=== PATIENT | male | born 1950 | race Asian ===

== ENCOUNTER 2023-09-20 08:21 | Observation (INO) | payer OTHER ==
[2023-09-20] MEDS ORDERED: MAG HYDROX/AL HYDROX/SIMETH 30 ML UNIT-DOSE CUP PO ONE (08:43)
[2023-09-20] MEDS ORDERED: ACETAMINOPHEN 1000 MG/100 ML BAG IVPB ONE (08:43)
[2023-09-20] MEDS ORDERED: FAMOTIDINE 20 MG/50 ML IVPB 20 MG/50 ML MG IVPB ONE ×2 (08:43→09:06)
[2023-09-20] MEDS ORDERED: ONDANSETRON 4 MG/2 ML VIAL IVPUSH ONE (08:43)
[2023-09-20] MEDS ORDERED: LACTATED RINGERS SOLUTION 1000 ML INFUS.BAG IV ONE (08:43)
[2023-09-20 08:47] VITALS: BMI 29.0
[2023-09-20] MEDS ORDERED: ACETAMINOPHEN INJECTION 100 ML IVPB ONE (09:06)
[2023-09-20] MEDS ORDERED: ONDANSETRON 4 MG/2 ML VIAL ONE (09:06)
[2023-09-20] MEDS ORDERED: MAG HYDROX/AL HYDROX/SIMETH 30 ML UNIT-DOSE CUP ONE (09:06)
[2023-09-20 09:40] LABS: HEMATOCRIT 40.8 % (35.4-49); HEMOGLOBIN 13.9 GM/dL (11.7-16.9); MCH 30.2 pg (25.7-33.7); MCHC 34.1 g/dl (32.0-35.9); MEAN CELL VOLUME 88.7 fl (80-96); MEAN PLT VOLUME 9.2 fl (7.5-11.1); PLATELET COUNT 253 10^3/uL (134-434); RDW 14.3 % (11.9-15.9); WHITE BLOOD COUNT 11.8 K/mm3 (4.0-10.0)
[2023-09-20 09:42] LABS: POTASSIUM 3.8 mmol/L (3.5-5.1)
[2023-09-20 09:46] LABS: CALCIUM 9.3 mg/dL (8.5-10.1)
[2023-09-20 09:47] LABS: ALBUMIN 3.9 g/dl (3.4-5.0); BLOOD UREA NITROGEN 19.7 mg/dL (7-18); MAGNESIUM 2.1 mg/dL (1.8-2.4)
[2023-09-20 09:48] LABS: INR 1.06 (0.83-1.09); PROTHROMBIN TIME (PATIENT) 12.3 SEC (9.7-13.0)
[2023-09-20 09:50] LABS: CREATININE 1.2 mg/dL (0.55-1.3)
[2023-09-20 09:51] LABS: ACTIVATED PTT 26.6 SECONDS (25.2-36.5); BILIRUBIN,TOTAL 0.6 mg/dL (0.2-1); TOT PROT 7.4 g/dl (6.4-8.2)
[2023-09-20 10:19] LABS: ANISOCYTOSIS 0; MACROCYTOSIS 0
[2023-09-20] MEDS ORDERED: BISACODYL 10 MG SUPP.RECT PR PRN (15:14)
[2023-09-20] MEDS ORDERED: PANTOPRAZOLE 40 MG TABLET PO ONE (15:36)
[2023-09-20] MEDS ORDERED: amLODIPine BESYLATE 5 MG TABLET (FP) ONE (15:37)
[2023-09-20] MEDS: SODIUM CHLORIDE 1,000 ML IV SCH (15:46)
[2023-09-20] MEDS: amLODIPine BESYLATE 5 MG TABLET (FP) PO SCH (15:46)
[2023-09-20] MEDS: PANTOPRAZOLE 40 MG TABLET PO SCH (15:46)
[2023-09-20] MEDS ORDERED: ALBUTEROL SO4 0.083% IH SOL 2.5 MG/3 ML VIAL.NEB. NEB ONE (16:13)
[2023-09-20] MEDS: ALBUTEROL SO4 0.083% IH SOL 2.5 MG/3 ML VIAL.NEB. NEB SCH ×2 (16:39→20:12)
[2023-09-20] MEDS: INSULIN SLIDING SCALE (NOVOLOG) 1 VIAL SQ SCH ×2 (16:39→22:21)
[2023-09-20] MEDS ORDERED: ACETAMINOPHEN 1000 MG/100 ML BAG IVPB PRN (18:00)
[2023-09-20] MEDS: CLINDAMYCIN 600MG PREMIX IVPB 600 MG/50 ML BAG IVPB SCH (18:47)
[2023-09-20] MEDS ORDERED: MELATONIN 1 MG TABLET PO SCH (22:00)
[2023-09-20] MEDS: HEPARIN NA (PORCINE) 5,000 UNITS/ML 1ML VIAL SQ SCH (22:21)
[2023-09-21] MEDS: CLINDAMYCIN 600MG PREMIX IVPB 600 MG/50 ML BAG IVPB SCH ×2 (01:13→09:29)
[2023-09-21 02:57] VITALS: PULSE 95
[2023-09-21] MEDS: ALBUTEROL SO4 0.083% IH SOL 2.5 MG/3 ML VIAL.NEB. NEB SCH ×4 (03:06→11:50)
[2023-09-21] MEDS: SODIUM CHLORIDE 1,000 ML IV SCH (03:20)
[2023-09-21] MEDS: HEPARIN NA (PORCINE) 5,000 UNITS/ML 1ML VIAL SQ SCH (06:22)
[2023-09-21] MEDS: INSULIN SLIDING SCALE (NOVOLOG) 1 VIAL SQ SCH ×2 (06:23→11:10)
[2023-09-21 09:02] LABS: EPI CELLS 1 /uL (0-25.1); HYALINE CASTS 0 /uL (0-3.1); URINE APPEARANCE CLEAR; URINE BACTERIA 6 /uL (0-1359); URINE BILIRUBIN NEGATIVE (NEGATIVE); URINE COLOR YELLOW; URINE GLUCOSE (UA) NEGATIVE (NEGATIVE); URINE KETONE NEGATIVE (NEGATIVE); URINE LEUK ESTERASE NEGATIVE (NEGATIVE); URINE NITRITE NEGATIVE (NEGATIVE); URINE PROTEIN NEGATIVE (NEGATIVE); URINE RBC 84 /uL (0-23.9); URINE WBC 6 /uL (0-25.8)
[2023-09-21 09:10] LABS: HEMATOCRIT 34.3 % (35.4-49); HEMOGLOBIN 11.3 GM/dL (11.7-16.9); MCH 29.8 pg (25.7-33.7); MEAN CELL VOLUME 90.4 fl (80-96); MEAN PLT VOLUME 9.2 fl (7.5-11.1); PLATELET COUNT 225 10^3/uL (134-434); WHITE BLOOD COUNT 5.2 K/mm3 (4.0-10.0)
[2023-09-21 09:20] LABS: POTASSIUM 3.8 mmol/L (3.5-5.1)
[2023-09-21] MEDS: amLODIPine BESYLATE 5 MG TABLET (FP) PO SCH (09:29)
[2023-09-21] MEDS: PANTOPRAZOLE 40 MG TABLET PO SCH (09:29)
[2023-09-21 09:35] VITALS: BP 126/67
[2023-09-21 09:55] LABS: BLOOD UREA NITROGEN 13.9 mg/dL (7-18); CALCIUM 8.6 mg/dL (8.5-10.1)
[2023-09-21 09:57] LABS: MAGNESIUM 2.1 mg/dL (1.8-2.4)
[2023-09-21 09:59] LABS: CREATININE 1.1 mg/dL (0.55-1.3); PHOSPHOROUS 3.2 mg/dL (2.5-4.9)
[2023-09-21 12:03] VITALS: RESP 18; TEMP 97.3
[2023-09-21] MEDS ORDERED: AMOX TR/POT CLAV 875MG/125MG TABLETS (FP) PO SCH (17:30)
== END 2023-09-21 12:40 | disposition home or self-care (01) ==
LOC: JER 08:21 → JERBED 09:54 → J8W 17:44
PROVIDERS: ADMIT Internal Medicine; ATTEND Nurse Practitioner Acute Care
PROC: 3E033NZ Introduction of Analgesics, Hypnotics, Sedatives into Peripheral Vein, Percutaneous Approach (ICD-10-PCS; principal; 2023-09-20)
PROC: 3E0F7GC Introduction of Other Therapeutic Substance into Respiratory Tract, Via Natural or Artificial Opening (ICD-10-PCS; 2023-09-20)
PROC: 3E03329 Introduction of Other Anti-infective into Peripheral Vein, Percutaneous Approach (ICD-10-PCS; 2023-09-20)
PROC: 3E013VG Introduction of Insulin into Subcutaneous Tissue, Percutaneous Approach (ICD-10-PCS; 2023-09-20)
PROC: 3E0337Z Introduction of Electrolytic and Water Balance Substance into Peripheral Vein, Percutaneous Approach (ICD-10-PCS; 2023-09-20)
DX: R11.2 Nausea with vomiting, unspecified (principal); F79 Unspecified intellectual disabilities; I25.10 Atherosclerotic heart disease of native coronary artery without angina pectoris; I11.0 Hypertensive heart disease with heart failure; R73.03 Prediabetes; Z95.5 Presence of coronary angioplasty implant and graft; M41.9 Scoliosis, unspecified
CPT/HCPCS: 0241U-QW; 36415; 71045-TC-FY; 74177-TC; 80048; 80053; 81003; 82962; 83036; 83690; 83735; 84100; 84484; 85025; 85027; 85610; 85730; 86140; 86850; 86900; 86901; 87040; 93005; 93010; 94640; 96361; 96365; 96367; 96372; 96374; 99285-25; G0378; J1644; Q9967

== ENCOUNTER 2024-03-06 13:27 | Inpatient (IN) | payer OTHER ==
[2024-03-06] MEDS ORDERED: hydrALAZINE HCL 20 MG/ML VIAL ONE (14:18)
[2024-03-06] MEDS ORDERED: amLODIPine BESYLATE 10 MG TABLET (FP) ONE (14:18)
[2024-03-06 14:25] LABS: HEMOGLOBIN 13.1 GM/dL (11.7-16.9); MCH 30.6 pg (25.7-33.7); MCHC 34.4 g/dl (32.0-35.9); MEAN PLT VOLUME 9.5 fl (7.5-11.1); PLATELET COUNT 199 10^3/uL (134-434); RBC 4.27 M/mm3 (4.00-5.60); RDW 14.1 % (11.9-15.9); WHITE BLOOD COUNT 5.1 K/mm3 (4.0-10.0)
[2024-03-06] MEDS: hydrALAZINE HCL 20 MG/ML VIAL IVPUSH ONE (14:27)
[2024-03-06] MEDS: amLODIPine BESYLATE 10 MG TABLET (FP) PO ONE (14:27)
[2024-03-06] MEDS ORDERED: ALBUTEROL SO4 2.5/IPRATROPIUM 0.5 INH SOL 3 ML VIAL.NEB. NEB ONE ×3 (14:38→18:45)
[2024-03-06] MEDS: ALBUTEROL SO4 2.5/IPRATROPIUM 0.5 INH SOL 3 ML VIAL.NEB. NEB SCH ×2 (14:43→19:15)
[2024-03-06] MEDS ORDERED: ACETAMINOPHEN INJECTION 100 ML IVPB ONE (14:44)
[2024-03-06 14:49] LABS: POTASSIUM 5.1 mmol/L (3.5-5.1)
[2024-03-06 14:51] LABS: CALCIUM 9.3 mg/dL (8.5-10.1)
[2024-03-06] MEDS: ACETAMINOPHEN 1000 MG/100 ML BAG IVPB ONE (14:51)
[2024-03-06 14:52] LABS: ALBUMIN 3.4 g/dl (3.4-5.0); BLOOD UREA NITROGEN 11.6 mg/dL (7-18)
[2024-03-06 14:55] LABS: CREATININE 1.2 mg/dL (0.55-1.3)
[2024-03-06 14:56] LABS: BILIRUBIN,TOTAL 0.5 mg/dL (0.2-1); TOT PROT 7.6 g/dl (6.4-8.2)
[2024-03-06 16:58] LABS: N-TERMINAL BNP 91.4 pg/ml (5-125)
[2024-03-06] MEDS ORDERED: methylPREDNISolone NA SUCC 125 MG/2 ML VIAL ONE (18:19)
[2024-03-06] MEDS: methylPREDNISolone NA SUCC 125 MG/2 ML VIAL IVPUSH ONE (18:27)
[2024-03-06] MEDS ORDERED: ASPIRIN 81 MG CHEWABLE TABLETS ONE (18:46)
[2024-03-06] MEDS ORDERED: LABETALOL HCL 200 MG TABLET (FP) ONE (19:26)
[2024-03-06] MEDS: ASPIRIN 81 MG CHEWABLE TABLETS PO ONE (19:38)
[2024-03-06] MEDS: LABETALOL HCL 200 MG TABLET (FP) PO SCH (19:39)
[2024-03-06 20:13] LABS: EPI CELLS 1 /uL (0-25.1); HYALINE CASTS 0 /uL (0-3.1); PH,URINE 6.5 (5.0-8.0); URINE APPEARANCE CLEAR; URINE BACTERIA 0 /uL (0-1359); URINE BILIRUBIN NEGATIVE (NEGATIVE); URINE COLOR YELLOW; URINE GLUCOSE (UA) NEGATIVE (NEGATIVE); URINE KETONE NEGATIVE (NEGATIVE); URINE LEUK ESTERASE NEGATIVE (NEGATIVE); URINE NITRITE NEGATIVE (NEGATIVE); URINE PROTEIN NEGATIVE (NEGATIVE); URINE RBC 180 /uL (0-23.9); URINE WBC 3 /uL (0-25.8)
[2024-03-06] MEDS: LOSARTAN 50MG/HCTZ 12.5MG 1 TAB PO SCH (22:18)
[2024-03-06] MEDS: HEPARIN NA (PORCINE) 5,000 UNITS/ML 1ML VIAL SQ SCH (22:18)
[2024-03-07 03:37] VITALS: BMI 26.2
[2024-03-07 07:09] LABS: BASO % 0.4 % (0-2.0); HEMATOCRIT 39.9 % (35.4-49); HEMOGLOBIN 13.5 GM/dL (11.7-16.9); LYMPH % 13.2 % (8-40); MCH 30.4 pg (25.7-33.7); MCHC 33.8 g/dl (32.0-35.9); MEAN PLT VOLUME 9.8 fl (7.5-11.1); NEUT % 83.4 % (42.8-82.8); PLATELET COUNT 216 10^3/uL (134-434); RBC 4.43 M/mm3 (4.00-5.60); RDW 13.9 % (11.9-15.9); WHITE BLOOD COUNT 2.5 K/mm3 (4.0-10.0)
[2024-03-07 07:28] LABS: POTASSIUM 3.5 mmol/L (3.5-5.1)
[2024-03-07 07:35] LABS: ALBUMIN 3.5 g/dl (3.4-5.0); BLOOD UREA NITROGEN 15.5 mg/dL (7-18); CALCIUM 9.9 mg/dL (8.5-10.1)
[2024-03-07 07:36] LABS: MAGNESIUM 2.1 mg/dL (1.8-2.4)
[2024-03-07 07:39] LABS: CREATININE 1.2 mg/dL (0.55-1.3)
[2024-03-07 07:40] LABS: BILIRUBIN,TOTAL 0.3 mg/dL (0.2-1); TOT PROT 7.5 g/dl (6.4-8.2)
[2024-03-07] MEDS: LOSARTAN POTASSIUM 50 MG TABLET PO SCH (10:03)
[2024-03-07] MEDS: ENOXAPARIN NA (PORCINE) 40 MG/0.4 ML DISP.SYRIN SQ SCH (10:03)
[2024-03-07] MEDS: methylPREDNISolone NA SUCC 40 MG/1 ML VIAL IVPUSH SCH (13:17)
[2024-03-07] MEDS: BUDESONIDE/FORMETEROL FUMARATE 80/4.5 mcg INHALER IH SCH (13:17)
[2024-03-07] MEDS: BENZONATATE 200 MG CAPSULE PO ONE (15:32)
[2024-03-07] MEDS: CEFTRIAXONE 1 GM in DEXTROSE 5%-WATER - 50 ML IVPB SCH (18:39)
[2024-03-07] MEDS: AZITHROMYCIN IVPB 250 MG in DEXTROSE 5%-WATER - 250 ML IVPB SCH (19:44)
[2024-03-07] MEDS: INSULIN ASPART SLIDING SCALE (NOVOLOG) 1 VIAL SQ SCH (21:57)
[2024-03-08 07:56] LABS: HEMATOCRIT 37.3 % (35.4-49); HEMOGLOBIN 12.3 GM/dL (11.7-16.9); MCH 29.9 pg (25.7-33.7); MEAN CELL VOLUME 90.7 fl (80-96); MEAN PLT VOLUME 9.6 fl (7.5-11.1); MONO % 5.3 % (3.8-10.2); NEUT % 89.7 % (42.8-82.8); PLATELET COUNT 215 10^3/uL (134-434); RBC 4.12 M/mm3 (4.00-5.60); RDW 14.5 % (11.9-15.9); WHITE BLOOD COUNT 9.9 K/mm3 (4.0-10.0)
[2024-03-08 08:07] LABS: POTASSIUM 3.7 mmol/L (3.5-5.1)
[2024-03-08 08:12] LABS: ALBUMIN 3.2 g/dl (3.4-5.0); BLOOD UREA NITROGEN 21.9 mg/dL (7-18); CALCIUM 9.7 mg/dL (8.5-10.1)
[2024-03-08 08:15] LABS: CREATININE 1.1 mg/dL (0.55-1.3)
[2024-03-08 08:17] LABS: BILIRUBIN,TOTAL 0.3 mg/dL (0.2-1); TOT PROT 6.8 g/dl (6.4-8.2)
[2024-03-08] MEDS: amLODIPine BESYLATE 10 MG TABLET (FP) PO SCH (10:18)
[2024-03-08] MEDS: FUROSEMIDE 40 MG/4 ML INJECTABLE VIAL IVPUSH SCH (10:18)
[2024-03-08] MEDS: guaiFENesin/CODEINE 5 ML UNIT-DOSE CUPS PO SCH (12:44)
[2024-03-08] MEDS: LEVALBUTEROL HCL 0.63 MG/3 ML VIAL.NEB. IH SCH (14:37)
[2024-03-08] MEDS: guaiFENesin/CODEINE 5 ML UNIT-DOSE CUPS PO ONE (19:29)
[2024-03-08] MEDS: guaiFENesin/CODEINE 10 ML UNIT-DOSE CUPS PO SCH (20:18)
[2024-03-09] MEDS: guaiFENesin/CODEINE 5 ML UNIT-DOSE CUPS PO SCH (14:19)
[2024-03-10 08:15] LABS: HEMATOCRIT 35.4 % (35.4-49); HEMOGLOBIN 11.8 GM/dL (11.7-16.9); MCH 30.2 pg (25.7-33.7); MCHC 33.4 g/dl (32.0-35.9); MEAN CELL VOLUME 90.4 fl (80-96); MEAN PLT VOLUME 9.6 fl (7.5-11.1); PLATELET COUNT 214 10^3/uL (134-434); RBC 3.91 M/mm3 (4.00-5.60); RDW 14.2 % (11.9-15.9)
[2024-03-10 08:27] LABS: POTASSIUM 3.4 mmol/L (3.5-5.1)
[2024-03-10 08:32] LABS: HEMATOCRIT 35.6 % (35.4-49); HEMOGLOBIN 11.9 GM/dL (11.7-16.9); MCH 30.2 pg (25.7-33.7); MCHC 33.4 g/dl (32.0-35.9); MEAN CELL VOLUME 90.4 fl (80-96); MEAN PLT VOLUME 9.7 fl (7.5-11.1); PLATELET COUNT 212 10^3/uL (134-434); RBC 3.94 M/mm3 (4.00-5.60); RDW 14.4 % (11.9-15.9); WHITE BLOOD COUNT 7.9 K/mm3 (4.0-10.0)
[2024-03-10 08:36] LABS: BLOOD UREA NITROGEN 34.2 mg/dL (7-18); CALCIUM 9.3 mg/dL (8.5-10.1); MAGNESIUM 2.1 mg/dL (1.8-2.4); PHOSPHOROUS 3.7 mg/dL (2.5-4.9)
[2024-03-10 08:37] LABS: BILIRUBIN,TOTAL 0.3 mg/dL (0.2-1); TOT PROT 6.2 g/dl (6.4-8.2)
[2024-03-10 08:38] LABS: ALBUMIN 3.1 g/dl (3.4-5.0)
[2024-03-10 08:48] LABS: CREATININE 1.1 mg/dL (0.55-1.3)
[2024-03-10] MEDS: metoPROLOL SUCCINATE 25 MG TAB.SR.24H (FP) PO ONE (13:55)
[2024-03-10] MEDS: POTASSIUM CHLORIDE TABS 20 MEQ TABLET.ER (FP) PO ONE (13:55)
[2024-03-11 07:19] LABS: HEMATOCRIT 36.8 % (35.4-49); HEMOGLOBIN 12.6 GM/dL (11.7-16.9); MCH 30.6 pg (25.7-33.7); MCHC 34.3 g/dl (32.0-35.9); MEAN CELL VOLUME 89.4 fl (80-96); MEAN PLT VOLUME 9.4 fl (7.5-11.1); PLATELET COUNT 230 10^3/uL (134-434); RBC 4.12 M/mm3 (4.00-5.60); RDW 14.2 % (11.9-15.9); WHITE BLOOD COUNT 6.6 K/mm3 (4.0-10.0)
[2024-03-11 07:43] LABS: POTASSIUM 3.8 mmol/L (3.5-5.1)
[2024-03-11 07:50] LABS: ALBUMIN 3.2 g/dl (3.4-5.0); BLOOD UREA NITROGEN 34.6 mg/dL (7-18)
[2024-03-11 07:51] LABS: BILIRUBIN,TOTAL 0.3 mg/dL (0.2-1); TOT PROT 6.5 g/dl (6.4-8.2)
[2024-03-11 07:52] LABS: CALCIUM 9.6 mg/dL (8.5-10.1)
[2024-03-11 07:53] LABS: MAGNESIUM 2.3 mg/dL (1.8-2.4)
[2024-03-11] MEDS: LOSARTAN POTASSIUM 50 MG TABLET PO SCH (09:39)
[2024-03-11] MEDS: ASPIRIN COATED 81 MG TABLET.EC PO SCH (14:45)
[2024-03-12] MEDS ORDERED: LOSARTAN POTASSIUM 50 MG TABLET PO ONE (06:52)
[2024-03-12 09:28] LABS: HEMATOCRIT 37.3 % (35.4-49); HEMOGLOBIN 12.7 GM/dL (11.7-16.9); MCH 30.5 pg (25.7-33.7); MCHC 34.1 g/dl (32.0-35.9); MEAN CELL VOLUME 89.4 fl (80-96); PLATELET COUNT 275 10^3/uL (134-434); RBC 4.17 M/mm3 (4.00-5.60); RDW 14.2 % (11.9-15.9); WHITE BLOOD COUNT 8.1 K/mm3 (4.0-10.0)
[2024-03-12 09:40] LABS: POTASSIUM 3.8 mmol/L (3.5-5.1)
[2024-03-12 09:41] LABS: ALBUMIN 3.4 g/dl (3.4-5.0); BLOOD UREA NITROGEN 32.4 mg/dL (7-18); CALCIUM 9.3 mg/dL (8.5-10.1); MAGNESIUM 2.3 mg/dL (1.8-2.4)
[2024-03-12 09:44] LABS: PHOSPHOROUS 3.3 mg/dL (2.5-4.9)
[2024-03-12 09:47] LABS: BILIRUBIN,TOTAL 0.4 mg/dL (0.2-1); TOT PROT 6.7 g/dl (6.4-8.2)
[2024-03-12 10:05] LABS: ANISOCYTOSIS 1+; MACROCYTOSIS 0
[2024-03-12] MEDS: methylPREDNISolone NA SUCC 40 MG/1 ML VIAL IVPUSH SCH (10:28)
[2024-03-13 07:37] LABS: POTASSIUM 3.9 mmol/L (3.5-5.1)
[2024-03-13 07:41] LABS: BLOOD UREA NITROGEN 29.6 mg/dL (7-18); CALCIUM 9.1 mg/dL (8.5-10.1)
[2024-03-13 07:43] LABS: CREATININE 0.9 mg/dL (0.55-1.3)
[2024-03-13] MEDS: predniSONE 20 MG TABLET (UD) PO SCH (09:33)
[2024-03-13] MEDS: amLODIPine BESYLATE 10 MG TABLET (FP) PO SCH (09:34)
[2024-03-13 15:15] VITALS: BP 120/59; PULSE 78; RESP 18; TEMP 98.2
[2024-03-13] MEDS ORDERED: amLODIPine BESYLATE 10 MG TABLET (FP) PO SCH (22:00)
== END 2024-03-13 17:40 | disposition home health service (06) | DRG 304 ==
LOC: JER 13:27 → JERBED 17:44 → OBSVTOIN 19:35 → J4W 20:31
PROVIDERS: ATTEND Internal Medicine
DX: I16.0 Hypertensive urgency (principal); J69.0 Pneumonitis due to inhalation of food and vomit; J45.901 Unspecified asthma with (acute) exacerbation; J98.11 Atelectasis; E78.5 Hyperlipidemia, unspecified; I11.0 Hypertensive heart disease with heart failure; I25.10 Atherosclerotic heart disease of native coronary artery without angina pectoris; I10 Essential (primary) hypertension; E11.9 Type 2 diabetes mellitus without complications; F79 Unspecified intellectual disabilities; Z95.5 Presence of coronary angioplasty implant and graft; I50.9 Heart failure, unspecified; R09.89 Other specified symptoms and signs involving the circulatory and respiratory systems
CPT/HCPCS: 0241U-QW; 36415; 71045-TC-FY; 71275-TC; 80048; 80053; 80061; 81003; 82962; 83036; 83605; 83735; 83880; 84100; 84443; 84484; 85025; 85027; 87040; 87086; 93005; 93010; 93306-TC; 93970-TC; 94761; 97116-GP; 97162-GP; 99285-25; G0378; J0131; J1644; Q9967

== ENCOUNTER 2024-10-30 15:52 | Emergency (ER) | payer OTHER ==
[2024-10-30 16:05] VITALS: RESP 18; TEMP 98.2
[2024-10-30 16:12] VITALS: BP 148/71; PULSE 96
[2024-10-30 16:15] VITALS: BMI 30.7
[2024-10-30] MEDS ORDERED: valACYclovir HCL 500 MG TABLET (FP) ONE (18:16)
[2024-10-30] MEDS: valACYclovir HCL 500 MG TABLET (FP) PO ONE (18:22)
== END 2024-10-30 19:00 | disposition home or self-care (01) ==
LOC: JER 15:52
DX: R21 Rash and other nonspecific skin eruption (principal); B02.9 Zoster without complications
CPT/HCPCS: 99283-25